=== PATIENT | male | born 1935 | race Caucasian/White ===

== ENCOUNTER 2019-04-02 09:17 | Emergency (ER) | payer MEDICARE, OTHER ==
[2019-04-02] MEDS ORDERED: NS 0.9% 1000 ML** 1,000 ML IV ONE (09:21)
--- NOTE | 2019-04-02 09:23 | ED ---
Neurological HPI - HPI Summary HPI Summary: This pt is an 83 y/o male presenting to [facility] via EMS from home for right sided weakness. EMS reports the pt's went to check on patient this morning and found pt lying on the floor on his right side next to the bed. Per EMS pt has right sided weakness with right sided facial droop and no verbal response. EMS notes pt is able to move his head and left arm. EMS states that en route to the hospital pt had a couple of episodes of apnea, lasting between 10-15 seconds each. EMS notes pt's son reported pt has been very busy in the last couple of days and was also driving with no issues. Last well known was last night, patient was normal, responsive and talking to people, per EMS. EMS reports exact time of last well known is not known by the family. Per EMS blood glucose is 139, blood pressure in the 160s systolic, and pulse in the 80s. Son reports for the past 2 days pt has been SOB and fatigued. Last night pt went to confucianism with his and was acting "kind of off" around 1900. Additionally per son, pt's reports pt's driving was erratic. At around 22: 00 last night 04/01/19 pt went to bed and looked liked in the middle of the night the pt had gone to the bathroom. Son denies pt with hx of tobacco or alcohol use. - History of Current Complaint Stated Complaint: FALL PER EMS Hx Obtained From: Family/Mechanical Insulator - Son, EMS Hx From Patient Unobtainable Due To: Other - LEVEL 5 CAVEAT - pt is nonverbal Onset/Duration: Started hours ago, Still Present Current Severity: Severe Neurological Deficit Location: Facial, RUE, RLE Character: Weak - right sided, Impaired Speech, Other: - right sided facial droop Aggravating: Unknown Alleviating: Unknown Associated Signs and Symptoms: Positive: Weakness - right sided, Impaired Speech. Negative: Fever - Allergy/Home Medications Allergies/Adverse Reactions: Allergies Allergy/AdvReac Type Severity Reaction Status Date / Time No Known Allergies Allergy Verified 04/02/19 10:13 Home Medications: Home Medications NK [No Home Medications Reported] 04/02/19 [History Confirmed 04/02/19] PMH/Surg Hx/FS Hx/Imm Hx Endocrine/Hematology History: Denies: Hx Diabetes Respiratory History: Denies: Hx Chronic Obstructive Pulmonary Disease (COPD) - Family History Known Family History: Positive: Unknown - due to level 5 caveat - pt is nonverbal - Social History Alcohol Use: None Smoking Status (MU): Never Smoked Tobacco Review of Systems - ROS Summary Review of Systems Summary: ROS LIMITED DUE TO LEVEL 5 CAVEAT - pt is nonverbal Negative: Fever Neurological: Other - POSITIVE: altered mental status, nonverbal, right sided weakness, right facial droop All Other Systems Reviewed And Are Negative: No Physical Exam - Summary Physical Exam Summary: Constitutional: Well-developed, Well-nourished, Alert. (-) Distressed Skin: Warm, Dry HENT: Normocephalic; Atraumatic Eyes: Conjunctiva normal Neck: Musculoskeletal ROM normal neck. (-) JVD, (-) Stridor, (-) Tracheal deviation Cardio: Rhythm regular, rate normal, Heart sounds normal; Intact distal pulses; The pedal pulses are 2+ and symmetric. Radial pulses are 2+ and symmetric. (-) Murmur Pulmonary/Chest wall: Effort normal. (-) Respiratory distress, (-) Wheezes, (-) Rales Abd: Soft. (-) Tenderness, (-) Distension, (-) Guarding, (-) Rebound Musculoskeletal: (-) Edema Lymph: (-) Cervical adenopathy Neuro: Alert, right hemiplegia with right sided hemineglect. Patient responds to pain. Patient is nonverbal. Psych: Mood and affect Normal Triage Information Reviewed: Yes Vital Signs On Initial Exam: Initial Vitals Temp Pulse Resp BP Pulse Ox 98.0 F 74 18 174/97 94 04/02/19 09:18 04/02/19 09:18 04/02/19 09:18 04/02/19 09:18 04/02/19 09:18 Vital Signs Reviewed: Yes Completion Of Physical Exam Limited Due To: Level 5 - Pt is nonverbal Procedures - Sedation Patient Received Moderate/Deep Sedation with Procedure: No - Intubation Time of Intubation: 10:51 Intubation Method: orotracheal Tube Size (cm): 7.5 Medications: Succinylcholine - 100 mg of succinylcholine and 20 mg Etomidate Breath Sounds after Intubation: equal Intubation Complications: no complications Progress/Xray Impression: MAC 3 - 7.5 tube placed at 24 at the lip line. Good color change. Diagnostics - Laboratory Result Diagrams: 04/02/19 09:18 04/02/19 09:18 Lab Statement: Any lab studies that have been ordered have been reviewed, and results considered in the medical decision making process. - Radiology Chest XR Radiology Interpretation Completed By: Radiologist Summary of Radiographic Findings: IMPRESSION: Interstitial edema. No evidence of alveolar consolidation is noted. Cardiomegaly is noted. Dr. Hung has reviewed this report. - CT Brain CT CT Interpretation Completed By: Radiologist Summary of CT Findings: IMPRESSION: 1. Acute left MCA territory infarct with no masss effect or large hemorrhage (evaluation limited by motion artifarct). 2. Hyperdense M1 segment of the left MCA concerning for thrombus. These findings were discused with Dr. Lorenzo Hung at 9:46 AM on April 02, 2019. Head/Neck CTA CT Interpretation Completed By: Radiologist Summary of CT Findings: IMPRESSION: 1. Acute left MCA territory infarct with no hemorrhage or significant mass effect. 2. Thromboembolic occlusion at the M1 segment of the left MCA. The downstream M2 and M3 segments are reconstituted by collateral circulation. 3. There is mixed soft and calcified atherosclerotic plaque at the bifurcation of the left common carotid artery with occlusion of the left ICA at its origin. 4. The right ANJALI is reconstituted by the anterior communication artery. 5. 50% stenosis near the origin of the right internal carotid artery by NASA criteria. The critial findings above were discussed with Dr. Lorenzo Hung at 9:58 AM on April 02, 2019. - EKG 09:54 Cardiac Rate: NL - at 72 bpm EKG Rhythm: Sinus Rhythm Summary of EKG Findings: EKG at 0954 shows normal sinus rhythm at 72 bpm. T wave inversions in V2-V5. No STEMI. 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 Non-Paretic Hand: Neither Correctly Best Gaze (Only Horizontal Eye Movement): Partial Gaze Palsy Visual Field Testing: Bilateral Hemianopia Facial Paresis-Pt to Smile & Close Eyes or Grimace Symmetry: Complete Paralysis Motor Function - Right Arm: No Movement Motor Function - Left Arm: Effort Against [place] Motor Function - Right Leg: No Movement Motor Function - Left Leg: Effort Against [place] Limb Ataxia-Must be out of Proportion to Weakness Present: Absent Sensory (Use Pinprick to Test Arms/Legs/Trunk/Face): Severe to Total Loss Best Language (Describe Picture, Name Items): Mute/Global Aphasia Dysarthria (Read Several Words): Unintelligible or Mute Extinction and Inattention: Inattention Total Score: 33 Re-Evaluation - Re-Evaluation First Eval Re-Evaluation Time: 09:48 Comment: Dr. Church, neurologist, at bedside. Second Eval Re-Evaluation Time: 10:09 Comment: I offered the son, Martin, consultation for clot retrieval and he wanted this to happen. Will consult with neurologist at [facility]. Third Eval Re-Evaluation Time: 10:35 Comment: Pt aspirated and discussed airway protection with family and their wishes and the patient's are for the patient to be intubated. Course/Dx - Course Course Of Treatment: Brain CT ordered at 09:21. Code Delacruz was called at 09:[address] Church's request. Patient back from CT at 09:45. At 09:46 Dr. Ortega, radiologist, calls to report brain CT results. Assessment/Plan: Pt is an 83 y/o male presenting to [facility] via EMS from home for right sided weakness. EMS reports the pt's went to check on patient this morning and found pt lying on the floor on his right side next to the bed. Per EMS pt has right sided weakness with right sided facial droop and no verbal response. EMS states that en route to the hospital pt had a couple of episodes of apnea, lasting between 10-15 seconds each. Last well known was last night, patient was normal, responsive and talking to people, per EMS. NIH stroke scale is equal to 33. Lab work unremarkable except for WBC of 11.1, glucose of 139, AST of 52. Discussed with Dr. Church, neurologist, who requested to call a Code Delacruz and he will come see the patient. Brain CT shows 1. Acute left MCA territory infarct with no masss effect or large hemorrhage (evaluation limited by motion artifarct). 2. Hyperdense M1 segment of the left MCA concerning for thrombus. Head/Neck CTA shows 1. Acute left MCA territory infarct with no hemorrhage or significant mass effect. 2. Thromboembolic occlusion at the M1 segment of the left MCA. The downstream M2 and M3 segments are reconstituted by collateral circulation. 3. There is mixed soft and calcified atherosclerotic plaque at the bifurcation of the left common carotid artery with occlusion of the left ICA at its origin. 4. The right ANJALI is reconstituted by the anterior communication artery. 5. 50% stenosis near the origin of the right internal carotid artery by NASA criteria. Chest XR reveals Interstitial edema. No evidence of alveolar consolidation is noted. Cardiomegaly is noted. Discussed the case with Dr. Wakefield, neurologist from [facility], who accepted the pt for transfer. At 10:51 pt was intubated after patient aspirated, per family and patient's wishes. See procedure note. Filled out advanced directive MOLST form that states patient is DNR. will sign MOLST form. Dx: large vessel occlusion, acute stroke, aspiration. THE PATIENT AND FAMILY ARE AWARE OF POOR PROGNOSIS, AND THE STRONG POSSIBILITHY THAT CLOT RETRIEVAL WOULD NOT BE UNDERTAKEN. PLAN FOR CT PERFUSION AT [facility]. INTUBATION FOR AIRWAY PROTECTION AFTER DISCUSSING TREATMENT GOALS AND PATIENT'S WISHES. FAMILY WISHES TO PROCEED. NEUROINTENSIVIST RECOMMENDS TRANSFER TO [facility] FOR FURTHER EVAL AND FURTHER DEICISION MAKING ABOUT CLOT RETRIEVAL. - Diagnoses Provider Diagnoses: Acute ischemic left MCA stroke, Aspiration into airway During the Visit The Following Alert/Code Occurred: Code Delacruz - at 09:34 - Physician Notifications Discussed Care Of Patient With: Nancy Church Time Discussed With Above Provider: 09:28 Instructed by Provider To: Other - Discussed with Dr. Church, neurologist, who reports to call a Code Delacruz and he will come see the patient. [09:46] Dr. Ortega , radiologist, reports brain CT results. [10:20] Discussed the case with Dr. Wakefield, neurologist from [facility], who accepted the pt for transfer. - Critical Care Time Critical Care Time: 75-104 min - 75 minutes Discharge ED - Sign-Out/Discharge Documenting (check all that apply): Patient Departure - Transfer to [facility] - Discharge Plan Condition: Stable Disposition: TRANS HIGHER LVL OF CARE FAC Referrals: No Primary Care Phys,NOPCP [Primary Care Provider] - - Billing Disposition and Condition Condition: STABLE Disposition: Trans Higher Lvl of Care Fac - Attestation Statements Document Initiated by Scribe: Yes Documenting Scribe: Daniela Griffith Provider For Whom Scribe is Documenting (Include Credential): Lorenzo Hung MD Scribe Attestation: I, Daniela Griffith, scribed for Lorenzo Hung MD on 04/02/19 at 1113. Scribe Documentation Reviewed: Yes Provider Attestation: The documentation as recorded by the scribe, Daniela Griffith accurately reflects the service I personally performed and the decisions made by me, Lorenzo Hung MD Status of Scribe Document: Viewed
[2019-04-02 09:33] LABS: ABS Lymphocytes 0.6 10^3/ul (1.0-4.8); ABS Monocytes 0.7 10^3/ul (0-0.8); ABS Neutrophils 9.9 10^3/ul (1.5-7.7); Hematocrit 43 % (42-52); Hemoglobin 15.1 g/dL (14.0-18.0); Lymphocyte % 5.1 %; Mean Corpuscular HGB Conc 35 g/dL (31-36); Mean Corpuscular Hemoglobin 34 pg (27-31); Mean Corpuscular Volume 98 fL (80-94); Platelet Count 167 10^3/uL (150-450); Red Blood Count 4.41 10^6 /uL (4.18-5.48); Red Cell Distribution Width 14 % (10-15); White Blood Count 11.1 10^3/uL (3.5-10.8)
[2019-04-02 09:45] LABS: Activated Partial Thrombo Time 29.5 seconds (26.0-38.0); INR 1.07 (0.82-1.09)
[2019-04-02] MEDS ORDERED: Iohexol 350* (CONTRAST) 500 ML MDV IV ONE (09:50)
[2019-04-02 09:54] LABS: Troponin I 0.03 ng/mL (<0.04)
[2019-04-02 10:01] LABS: Albumin 4.3 g/dL (3.2-5.2); Albumin/Globulin Ratio 1.3 (1-3); BUN/Creatinine Ratio 18.6 (8-20); Calcium 9.7 mg/dL (8.6-10.3); EGFR African American 71.5 (>60); EGFR Non-African American 59.1 (>60); Globulin 3.2 g/dL (2-4); HDL Cholesterol 38.6 mg/dL; Potassium 4.7 mmol/L (3.5-5.0); Total Protein 7.5 g/dL (6.4-8.9)
[2019-04-02] MEDS ORDERED: Propofol* 100 ML ONE (10:34)
[2019-04-02] MEDS ORDERED: Propofol* 100 ML IV ONE (10:39)
[2019-04-02] MEDS ORDERED: Etomidate* 2 MG/ML 20 ML VIAL (40 MG) ONE (10:47)
[2019-04-02] MEDS ORDERED: Succinylcholine* 20 MG/ML 10 ML VIAL ONE (10:47)
[2019-04-02 11:33] VITALS: BP 182/88
--- NOTE | 2019-04-02 13:37 | CONS ---
NEUROLOGY CONSULTATION NOTE: DATE OF CONSULT: 04/02/19 The history was obtained by his son and Mrs. Lamas, who are at bedside. CHIEF COMPLAINT: Right-sided weakness and inability to communicate. HISTORY OF PRESENT ILLNESS: Mr. 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 via EMS transport after being found with right hemiplegia and aphasia. Symptoms onset unknown, but the patient's last known well was on 04/01/19 at 7:00 p.m. The patient [facility] at 7:30 p.m. yesterday. His stated that he was trying to reach objects on the floor using the right hand. He was acting bizarre and not normal. He was having trouble with words and kept repeat ing "I don't know." He did not go into mandaeism because he did not feel well. After coming back from mandaeism, he was assessed by friends, who deemed that he was not safe to drive home. Someone else drop ped him home last night. The patient went inside his room and went straight to bed. Spouse stated t hat he woke up at 10:00 p.m., walked to the bathroom and then walked back to his room, but he was zoila mbling. This morning, the patient was unable to get out of bed due to profound right hemiplegia and stroke. He was contacted by Dr. Hung at 9:24 a.m. on 04/02/19 to consult on the patient. The rina ent had a fasting blood glucose of 139 via EMS. His vitals en route were 166/83 for blood pressure a nd heart rate of 68. I recommended a code mckeon to be activated and it was activated at 9:30 a.m. Th e patient had a CT head which showed a left MCA vacular territory ischemic stroke as well as a hyperd ense MCA sign. The CT of the head was read by myself at 9:25 a.m. The CTA was also done and it show ed an LVO extending from the left ICA into the left M1 vascular distribution. Dr. Hung contacted [facility] and [facility] would like the patient to be transferred to a comprehensive stroke center and acce pted the patient. The patient has no reported past medical history, surgical history, allergies, and has not taken any medications. NIH stroke scale that was performed at 9:30 a.m. was 33. Specifically, the patient had +3 for level of consciousness as he was unresponsive, +2 for inability to answer the month and age, +2 when asked to blink the eyes and squeeze the hands, +2 for forced gaze palsy, +2 for complete janna anopia, +3 for unilateral complete paralysis, +4 for no movements on the right arm, +4 for no movemen ts on the right leg, +2 for two-limb ataxia, +2 for complete loss of sensation, +3 for mute/global ap hasia, +2 for anarthria and +2 for profound janna attention. The patient was deemed not a tPA candidate at 9:30 a.m. on 04/02/19. We did discuss the case with [facility] and the patient will be transferred [facility]. SOCIAL HISTORY: The patient has no history of tobacco or alcohol use. The patient is . He l tamir at independent living with his spouse. 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 REVIEW OF SYSTEMS: Unable to obtain due to the patient's severe anarthria and aphasia. PHYSICAL EXAM: Vitals: Temperature 98.0, pulse of 74, respiratory rate of 18, oxygen saturation of 94%, blood pressure of 174/97. General: Ill-appearing elderly man in mild distress. He may be aspi rating. Head: Atraumatic, normocephalic without any obvious abnormality. Neck is supple and symmet rical with no carotid bruits. Eyes: Conjunctivae/cornea are clear. Cardiovascular: Regular rate a nd rhythm with normal S1 and S2. Chest: Clear to auscultation in apical regions, but crackles in th e right lower basilar region. Extremities: Mild hammertoes. No cyanosis. Skin: There is a skin l aceration in the right digits on the right lower extremity. No active bleeding is apparent. Psych: Unable to assess. Neurological Examination: Mental Status: Awake, but not alert to self, place, t deidra or general circumstance. He has severe global aphasia. Cranial Nerves: Pupils equal, round, re active to light. He has got complete left homonymous hemianopsia, as well as left eye deviation that cannot cross the midline. He has got reduced sensation to pinprick on the right face, right facial droop, and would not participate in evaluating other cranial nerves like the tongue. Motor Examinati on: He is plegic on the right side. He has spontaneous movement on the left. Sensory: Appears to have no response to pin on the right, but withdraws on the left. Coordination: Unable to cooperate due to severe aphasia. Reflexes 0 on the right and 1+ on the left. Upgoing plantar response on the right. Gait unable to assess. DIAGNOSTIC STUDIES/LAB DATA: Labs, imaging, and other diagnostic testing: CT head acute left MCA te rritorial infarct with no mass effect or large hemorrhage, hyperdense M1 segment of the left MCA conc erning for thrombus. CTA of the head read by the radiologist as acute left MCA territory infarct, th romboembolic occlusion of the M1 segment of the left MCA, the downstream M2 and M3 segments and recon stituted by collateral circulation. There is mixed soft and calcified atherosclerotic plaque at the bifurcation of the left common carotid with occlusion of the left ICA at its origin. The right ICA i s reconstituted by anterior communicating artery. There is 50% stenosis of the right ICA. Labs: WBC 11, hemoglobin of 15, hematocrit of 43, platelet count of 167. Sodium of 140, potassium 4 .7, chloride of 106, carbon dioxide of 27, BUN of 22, creatinine of 1.18. Glucose of 139, LDL was 1 24, cholesterol was 180. ASSESSMENT AND RECOMMENDATIONS: Mr. Lonnie Lamas is an 83-year-old man with large left MCA vascul ar territory ischemic stroke due to left ICA occlusion causing [id number] embolism to the left MCA vascular territory. NIH stroke scale is 33. Modified Villalba scale is 5. The patient is not a candidate for IV tPA as th e symptoms began outside the therapeutic window. He will not be a candidate for mechanical thrombect geraldine given his large stroke that is apparent on the CT head. The case was discussed with Nikki per Dr. Hung and [facility] would like the patient to be transferred for a possible CT perfusion. Again, y ou know, stroke is apparent on the CT and it is definitely greater than 80 cc in size. Further evalu ation per Endovascular Neurosurgery will be completed at [facility]. RECOMMENDATION: Allow permissive hypertension. The patient will be intubated to protect his airway during transport. I recommend aspirin 325 mg x1 now. Keep blood glucose between 120 to 200. Neuro checks every 15 minutes. The patient's mortality risk is extremely high. I discussed these recommendations and the prognosis with the family as well as Mrs. Lamas. Ruthie jose, the patient's code status is full code. Defer further management per the comprehensive stroke c enter. Critical care time 40 minutes. I discussed and reviewed the results of the imaging and the case with Dr. Hung. The patient does not have any evidence of seizures and seizure prophylactic is not indicated. [id number]/[facility] #: [id number]
== END 2019-04-02 11:31 | disposition short-term general hospital (02) ==
LOC: ED 09:17
DX: I63.512 Cerebral infarction due to unspecified occlusion or stenosis of left middle cerebral artery (principal); T17.990A Other foreign object in respiratory tract, part unspecified in causing asphyxiation, initial encounter; X58.XXXA Exposure to other specified factors, initial encounter; Y92.9 Unspecified place or not applicable
CPT/HCPCS: 36415; 70450; 70496; 70498; 71045; 80053; 80061; 83605; 84484; 85025; 85610; 85730; 93005; 96361; 96374; 99285; J0330; J2704; Q9967